=== PATIENT | male | born 1995 | race Caucasian/White ===

== ENCOUNTER 2017-06-17 16:56 | Emergency (ER) | payer BC ==
[~2017-06-17] VITALS: Ht 185.4 cm; Wt 95.0 kg
[2017-06-17 17:02] VITALS: BP 160/91; PULSE 85; RESP 16; TEMP 98; O2SAT 100
--- NOTE | 2017-06-17 17:32 | RADRPT ---
EXAM DATE/TIME: 06/17/2017 17:19 [place] COMPARISON: No previous studies available for comparison. INDICATIONS : Left femur pain after fall [place] football. MEDICAL HISTORY : None. SURGICAL HISTORY : None. ENCOUNTER: Initial ACUITY: 1 day PAIN SCORE: 9/10 LOCATION: Left middle femur. FINDINGS: Two view examination of the left femur demonstrates no evidence of fracture or dislocation. Bony min eralization is normal. The soft tissue structures are intact. CONCLUSION: Normal examination for a patient of this age. Jayant Jane MD on June 17, 2017 at 17:30 Board Certified Radiologist. This report was verified electronically.
--- NOTE | 2017-06-17 19:10 | PD ---
HPI Chief Complaint: Injury Time Seen by Provider: 18:11 Travel History International Travel<30 days: No Contact w/Intl Traveler<30days: No Traveled to known affect area: No History of Present Illness HPI Patient was emergency department complaining of left thigh pain that began while [place] football [place] the beach today. Patient states he went up to catch a football when he came down and landed on his foot wrong causing pain in his left lateral thigh. Patient reports applying ice and elevating this prior to coming emergency department with little no relief of symptoms. Pain is worse when he tries to flex his knee. Describes pain as feeling like a pulled muscle. He denies any other known injury. Denies any numbness or tingling. PFSH Past Medical History Medical History: Denies Significant Hx Social History Tobacco Use: No Substance Use: No Allergies-Medications (Allergen,Severity, Reaction): Coded Allergies: Penicillins (Verified Allergy, Severe, 06/17/17) Reported Meds & Prescriptions Reported Meds & Active Scripts Active No Active Prescriptions or Reported Medications Review of Systems Except as stated in HPI: all other systems reviewed are Neg Physical Exam Narrative GENERAL: Well-developed, well nourished, in no acute distress, and non-ill appearing. SKIN: Focused skin assessment warm and dry. HEAD: Atraumatic. Normocephalic. EYES: Pupils equal and round. EOMI. No scleral icterus. No injection or drainage. ENT: No nasal bleeding or discharge. Mucous membranes pink and moist. NECK: Trachea midline. Supple. No nuclear rigidity. CARDIOVASCULAR: Dorsal pulses 2+, intact, and equal bilaterally. Capillary refill less than 2 seconds. RESPIRATORY: No accessory muscle use. No respiratory distress. MUSCULOSKELETAL: No obvious deformities. No clubbing. No cyanosis. No edema. Decreased range of motion of left knee secondary to pain on active motion. Knee : Negative patellar apprehension, varus and valgus maneuvers, anterior draw test , and Remi test. Pulses equal BL distal to injury. Capillary refill less than 2 seconds distal to injury and equal BL. FROM distal to injury and equal BL. Strength distal to injury equal BL. NV intact distal to injury. Dorsal pulses equal BL. Sensation equal BL 1st web space. Soft tissue swelling of the left lateral thigh. Tender to palpation. No crepitus. Patient reports increased pain with passive flexion of left knee. NEUROLOGICAL: Awake and alert. No obvious cranial nerve deficits. Motor grossly within normal limits. Normal speech. PSYCHIATRIC: Appropriate mood and affect; insight and judgment normal. Data Data Last Documented VS Vital Signs Date Time Temp Pulse Resp B/P (MAP) Pulse Ox O2 Delivery O2 Flow Rate FiO2 06/17/17 17:02 98.0 85 16 160/91 (114) 100 Orders Orders Femur (Ap & Lat/2vws) (06/17/17 ) Ed Discharge Order (06/17/17 19:03) Splint Or Brace Apply/Monitor (06/17/17 19:03) Ibuprofen (Motrin) (06/17/17 19:15) MDM Medical Decision Making Medical Screen Exam Complete: Yes Emergency Medical Condition: Yes Interpretation(s) Last Impressions Femur X-Ray 06/17/17 0000 Signed Impressions: Service Date/Time: June 17:19 - CONCLUSION: Normal examination for a patient of this age. Jayant Jane MD Differential Diagnosis Fracture, strain, contusion, dislocation, tendon rupture Narrative Course There is no clinical evidence for knee or leg fracture. There is no clinical evidence to suspect bony injury by exam. No obvious ligamental injury or obvious internal derangement is noted at this time. The anterior, posterior, lateral and medial collateral ligaments are intact and symmetrical. The distal extremity appears neurovascularly intact, without evidence of neurovascular injury nor compartment syndrome. Tendon exam also was intact. The effected limb was immobilized. The patient was discharged and given warnings for vascular compromise. The patient is to follow up with Orthopedics and/or primary care doctor. The patient agrees with plan. Patient in no obvious distress upon re-evaluation. All pertinent Radiology result(s) discussed with patient. Any questions/concerns in reference to patient diagnosis/condition discussed and clarified prior to patient's discharge. Reinforced sheer importance of close follow up with patient's primary physician or primary care clinic and/or orthopedic. Instructed patient to return to ED immediately, if symptoms return/worsen. Patient showed understanding of above instructions. Further instructions and recommendations were detailed in discharge paperwork. Patient ambulated without difficulty out of ED at discharge with knee immobilizer and crutches. Diagnosis Primary Impression: Musculoskeletal pain of left thigh Patient Instructions: Crutch Instructions (ED), General Instructions, Knee Immobilizer (DC), Musculoskeletal Pain (ED) Additional Instructions: Follow-up with your primary care physician and/or orthopedic in 3-5 days for reevaluation. Use [id number] Tylenol and ibuprofen as needed for pain. Follow instructions on the packaging. Wear knee immobilizer while awake until reevaluated. Use crutches for additional support. Apply ice to affected area 20 min/h as needed for pain. Return to the emergency department if symptoms get worse. Scripts No Active Prescriptions or Reported Meds Disposition: 01 DISCHARGE HOME Condition: Stable Davey Lowe Jun 17, 2017 19:09
[2017-06-17] MEDS ORDERED: IBUPROFEN 800 MG TAB PO ONE (19:15)
== END 2017-06-17 19:50 | disposition home or self-care (01) ==
LOC: NEPK 16:56
DX: M79.652 Pain in left thigh (principal); X50.9XXA Other and unspecified overexertion or strenuous movements or postures, initial encounter; Y93.61 Activity, american tackle football; Y92.832 Beach as the place of occurrence of the external cause
CPT/HCPCS: 73552; 99283; E0113; L1830